=== PATIENT | female | born 1960 | race Caucasian/White ===

== ENCOUNTER 2016-07-20 07:05 | Day surgery (SDC) | payer OTHER ==
[2016-07-20] VITALS (23 sets, daily range): BP systolic 54–133; BP diastolic 43–76; PULSE 34–78; RESP 11–21; Ht 157.5 cm; Wt 56.7 kg
[~2016-07-20] VITALS: Ht 157.5 cm; Wt 56.7 kg
[~2016-07-20 07:05] MED LIST: LACTATED RINGER'S 1,000 ML IV* SCH; NALTREXONE PO; NATURE-THROID PO
[2016-07-20] MEDS ORDERED: LISI-313 PO (07:47)
[2016-07-20] MEDS ORDERED: NALT50TA9 PO (07:50)
[2016-07-20] MEDS ORDERED: THYR97.5 PO (07:51)
[2016-07-20] MEDS ORDERED: FENTAnyl 50 MCG/ML VIAL ONE (09:18)
[2016-07-20] MEDS ORDERED: PROPOFOL 20 ML ONE (09:18)
[2016-07-20] MEDS ORDERED: MIDAZOLAM 1 MG/ML 2 ML INJ ONE (09:18)
--- NOTE | 2016-07-20 09:18 | HPN ---
Date/Time of Note Date/Time of Note DATE: 07/20/16 TIME: 09:17 Interval H&P Admission Note Pt. seen H&P reviewed: No system changes ANYA NAVAS MD Jul 20, 2016 09:18
[2016-07-20] MEDS ORDERED: PHENYLephrine (100 MCG/ML) 5ML SYG ONE (09:49)
[2016-07-20] MEDS ORDERED: KETOROLAC 30 MG INJ ONE (10:12)
[2016-07-20] MEDS ORDERED: ONDANSETRON 4 MG INJ ONE (10:12)
[2016-07-20] MEDS ORDERED: DEXAMETHASONE 4 MG/ML 1 ML INJ ONE (10:12)
[2016-07-20] MEDS ORDERED: METOCLOPRAMIDE 10 MG INJ ONE (10:12)
--- NOTE | 2016-07-20 10:28 | PD.PPDC ---
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
[2016-07-20] MEDS ORDERED: HYDROmorphONE (0.2 MG/ML) 10ML SYG IV PRN ×3 (10:30)
[2016-07-20] MEDS ORDERED: DIPHENHYDRAMINE 50 MG INJ IV PRN (10:30)
[2016-07-20] MEDS ORDERED: ONDANSETRON 4 MG INJ IV PRN (10:30)
[2016-07-20] MEDS ORDERED: MEPERIDINE 25 MG INJ IV PRN (10:30)
[2016-07-20] MEDS ORDERED: morphine (1 MG/ML) 10ML SYRINGE IV PRN ×3 (10:30)
[2016-07-20] MEDS ORDERED: METOCLOPRAMIDE 10 MG INJ IV PRN (10:30)
[2016-07-20] MEDS ORDERED: ATROPINE 1 MG/10 ML SYRINGE ONE (10:41)
[2016-07-20] MEDS ORDERED: GLYCOPYRROLATE 0.4 MG INJ ONE (10:44)
--- NOTE | 2016-07-20 18:19 | OPR ---
DATE OF OPERATION: 07/20/2016 PREOPERATIVE DIAGNOSIS: Postmenopausal bleeding. POSTOPERATIVE DIAGNOSIS: Postmenopausal bleeding. See pathological report. OPERATION PERFORMED: Fractional dilation and curettage. ANESTHESIA: General. ANESTHESIOLOGIST: ESTIMATED BLOOD LOSS: Negligible. PROCEDURE: Under appropriate induction of general anesthesia the patient was placed in the dorsal l ithotomy position. A weighted speculum was introduced and the anterior lip of the cervix was retra cted somewhat which brought out and using the Allis clamp, and a Pap smear was done. The endocervic al and ectocervical swab was taken and then, as the patient requested, a fungal culture was obtained and sent to the hospital lab. Then the patient was prepped and draped in the usual aseptic manner. A weighted speculum, anterior lip of the cervix was grasped with a single tooth tenaculum. Endocer vical curettage was performed, with obtaining scanty tissue with mucus, which was sent and the cavit y was sounded, which was 7 cm. The os was dilated gradually enough to submit a small curet and the e ntire uterine cavity was curetted in all directions, obtaining hyperplastic appearing tissue, which is much more than a menopausal woman. There was no irregularity noted. Procedure was complete. Al l the instruments were removed and the specimen was sent to pathology. No bleeding was noted. The patient was sent to the recovery room in stable condition. Dictated By: DARLEEN GAMBLE/SURENDRA Conf#: [id number] DID#: [id number]
== END 2016-07-20 12:32 | disposition home or self-care (01) ==
LOC: SDS 07:05
PROVIDERS: ATTEND Obstetrics & Gynecology
DX: N95.0 Postmenopausal bleeding (principal); I10 Essential (primary) hypertension
CPT/HCPCS: 58120; 87102; 88305; J1170; J2250; J2370; J2405; J3010; Z7512; Z7610; J0461; J1100; J1885; J2765